=== PATIENT | male | born 1955 | race Two or more races ===

== ENCOUNTER 2024-04-04 05:29 | Day surgery (SDC) | payer OTHER ==
[2024-04-02 14:41] VITALS: BP 128/67
[~2024-04-04] VITALS: Ht 172.7 cm; Wt 78.5 kg
[~2024-04-04 05:29] MED LIST: ASA81 MG PO; FINASTERIDE5 MG PO; NASAL MIST126 ML; TAMS0.4C PO
[2024-04-04] MEDS ORDERED: CEFTRIAXONE SODIUM 2,000 MG VIAL IV ONE (10:45)
[2024-04-04] MEDS ORDERED: METRONIDAZOLE/SODIUM CHLORIDE 500 MG/100 ML PIGGYBACK IV ONE (10:45)
[2024-04-04] MEDS ORDERED: BUPIVACAINE HCL 30 ML VIAL IJ ONE (15:00)
[2024-04-04] MEDS ORDERED: HEMOSTATIC MATRIX 1 KIT KIT TOP ONE (15:00)
[2024-04-04] MEDS ORDERED: DIBUCAINE 30 GM TUBE RECTAL ONE (15:00)
[2024-04-04] MEDS ORDERED: LIDOCAINE HCL 1%/EPINEPHRINE 20ML VIAL IJ ONE (15:00)
[2024-04-04] MEDS ORDERED: POVIDONE-IODINE 118 ML BOTT TOP ONE (15:00)
== END 2024-04-04 17:45 | disposition home or self-care (01) ==
LOC: CIR.AMB 05:29
PROVIDERS: ATTEND Colon & Rectal Surgery
DX: D12.9 Benign neoplasm of anus and anal canal (principal); K64.2 Third degree hemorrhoids; K64.4 Residual hemorrhoidal skin tags; K64.8 Other hemorrhoids; Z88.2 Allergy status to sulfonamides